=== PATIENT | female | born 1930 | race Two or more races ===

== ENCOUNTER 2017-06-11 10:44 | Inpatient (IN) | payer OTHER ==
[~2017-06-11] VITALS: Ht 167.6 cm; Wt 71.7 kg
[~2017-06-11 10:44] MED LIST: AMLO5TAB2 PO; ATOR10TA; CELE200C PO; DONETAB5 PO; GABA100C9; MEMA28CA PO; RALO60TA10
[2017-06-11] MEDS ORDERED: SODIUM CHLORIDE 0.9% 1,000 ML IVB ONE (11:29)
[2017-06-11 11:36] LABS: Basophils # (auto) 0 uL; Basophils % (auto) 0.7 % (0.0-2.0); Eosinophils # (auto) 0 uL; Eosinophils % (auto) 0.5 % (0.0-7.0); Hematocrit 46.6 % (36.0-46.0); Hemoglobin 15.5 g/dL (12.2-16.2); Lymphocytes # (auto) 1.7 uL; Lymphocytes % (auto) 32.1 % (10.0-50.0); Mean Corpuscular Hemoglobin 31.3 pg (28.0-32.0); Mean Corpuscular Hgb Conc. 33.3 g/dL (32.0-36.0); Mean Corpuscular Volume 94.1 fL (80.0-100.0); Monocytes # (auto) 0.7 uL; Neutrophils # (auto) 2.9 uL; Neutrophils % (auto) 53.7 % (37.0-80.0); Nucleated Red Blood Cells % 0.3 %; Platelet Count (auto) 149 10^3/uL (140-450); Red Blood Cells 4.96 10^6/uL (4.0-5.20); Red Cell Distribution Width 13.1 % (11.8-14.3); White Blood Cell 5.4 10^3/uL (4.4-10.8)
[2017-06-11 12:13] LABS: Albumin 3.3 g/dL (3.4-5.0); BUN/Creatinine Ratio 15.4; Bilirubin, Total 0.6 mg/dL (0.2-1.0); Calcium 8.5 mg/dL (8.5-10.1); Lactic Acid w/Reflex 3.4 mmol/L (0.4-2.0); Magnesium 2.3 mg/dL (1.6-2.6); Potassium 3.6 mmol/L (3.5-5.1); Total Protein 7.1 g/dL (6.4-8.2)
[2017-06-11] MEDS ORDERED: ASPirin-EC 81 mg tab PO ONE (13:15)
[2017-06-11 14:03] LABS: Urine Bacteria FEW /hpf (None Seen); Urine Blood Negative /uL (Negative); Urine Specific Gravity 1.016 (1.001-1.035); Urine WBC <1 /hpf (0 - 5)
[2017-06-11] MEDS ORDERED: LORazepam 0.5 MG TAB PO PRN (14:15)
[2017-06-11] MEDS ORDERED: PROMETHAZINE HCL 25 MG/ML 1ML IV PRN (14:15)
[2017-06-11] MEDS ORDERED: DEXTROSE (50%) 50ML SYRG IV PRN (14:15)
[2017-06-11] MEDS ORDERED: MORPHINE SULFATE 10 MG/ML INJ 1ML SDV IV PRN (14:15)
[2017-06-11] MEDS ORDERED: LACTULOSE 20Gm/30ML SOLN PO PRN ×3 (14:15→15:30)
[2017-06-11] MEDS ORDERED: NITROGLYCERIN 0.4 MG SL TAB SL PRN (14:15)
[2017-06-11] MEDS ORDERED: ACETAMINOPHEN 500 MG TAB PO PRN (14:15)
[2017-06-11] MEDS ORDERED: HYDROcodone-ACET 5/325MG TAB PO PRN (14:15)
[2017-06-11] MEDS ORDERED: MORPHINE SULF INJ 2 MG/ML SYRINGE 1ML IV PRN (14:15)
[2017-06-11 14:23] LABS: INR 0.98 (0.9-1.15); Partial Thromboplastin Time 27.3 sec (22.64-33.71); Prothrombin Time 10.7 sec (9.37-12.3)
[2017-06-11] MEDS: SODIUM CHLORIDE 0.9% 1,000 ML IV SCH (14:42)
[2017-06-11 14:52] LABS: CRP High Sensitivity 4.15 mg/dL (< 0.3)
[2017-06-11 15:11] VITALS: BP 139/48
[2017-06-11 15:18] LABS: Folate (Folic Acid) > 24.00 ng/mL (5.38-24)
[2017-06-11] MEDS ORDERED: ALBUTEROL SULF 2.5 MG/0.5ML(0.5%) NEB SOLN NEB PRN (15:30)
[2017-06-11] MEDS: DOXYCYCLINE HYC 100MG/250ML 250 ML IV SCH (15:54)
[2017-06-11] MEDS: methylPREDNISolone SOD SUCC 40 MG/ML VL IV SCH (15:57)
[2017-06-11] MEDS: ENOXAPARIN SOD 80 MG/0.8ML SYRINGE SC SCH (15:59)
[2017-06-11] MEDS ORDERED: FUROSEMIDE 40 MG/4 ML VIAL IV ONE (16:00)
[2017-06-11] MEDS ORDERED: POTASSIUM CHL 20 Meq TABLET PO ONE (16:00)
[2017-06-11] MEDS ORDERED: ENALAPRIL MALEATE 2.5 MG TAB PO ONE (16:00)
[2017-06-11 17:00] VITALS: BP 162/69
[2017-06-11] MEDS ORDERED: DOCU-99 PO (17:30)
[2017-06-11] MEDS ORDERED: MEMA1CAP2 PO (17:30)
[2017-06-11] MEDS: ACCU-CHEK COMFORT CURVE STRIP VI SCH ×2 (18:08→23:38)
[2017-06-11] MEDS: ALBUTEROL SULF 2.5 MG/0.5ML(0.5%) NEB SOLN NEB SCH ×2 (20:34→23:34)
[2017-06-11] MEDS: IPRATROPIUM BROM 0.5 MG/2.5ML INH SOL NEB SCH ×2 (20:34→23:34)
[2017-06-11 20:37] VITALS: BP 132/88
[2017-06-11 21:30] VITALS: BP 139/71
[2017-06-11] MEDS: SODIUM CHLOR 0.9% PF (SALINE LOCK) 10ML VIAL IV SCH (21:39)
[2017-06-11] MEDS: DONEPEZIL HYDROCHLORIDE 5 MG TAB PO SCH (21:39)
[2017-06-11] MEDS: CARVEDILOL 3.125 MG TAB PO SCH (21:40)
[2017-06-11] MEDS: MEMANTINE HCL 5 MG TAB PO SCH (21:40)
[2017-06-11] MEDS: ATORVASTATIN 20 MG TAB PO SCH (21:40)
[2017-06-11] MEDS: GABAPENTIN 100 MG CAP PO SCH (21:41)
[2017-06-11] MEDS ORDERED: ATORVASTATIN 20 MG TAB PO SCH (22:00)
[2017-06-11] MEDS ORDERED: METOPROLOL TARTRATE 25 MG TAB PO SCH (22:00)
[2017-06-11] MEDS ORDERED: DONEPEZIL HYDROCHLORIDE 5 MG TAB PO SCH (22:00)
[2017-06-12] MEDS: TEMAZEPAM 15 MG CAP PO PRN (00:37)
[2017-06-12] MEDS: DOXYCYCLINE HYC 100MG/250ML 250 ML IV SCH ×2 (03:00→15:30)
[2017-06-12] MEDS: methylPREDNISolone SOD SUCC 40 MG/ML VL IV SCH ×2 (03:00→15:29)
[2017-06-12] MEDS: SODIUM CHLORIDE 0.9% 1,000 ML IV SCH ×2 (03:01→15:28)
[2017-06-12 05:00] VITALS: BP 118/60
[2017-06-12] MEDS: SODIUM CHLOR 0.9% PF (SALINE LOCK) 10ML VIAL IV SCH ×3 (05:32→21:34)
[2017-06-12] MEDS: GABAPENTIN 100 MG CAP PO SCH ×3 (05:33→21:35)
[2017-06-12] MEDS: ENOXAPARIN SOD 80 MG/0.8ML SYRINGE SC SCH ×2 (05:34→17:55)
[2017-06-12] MEDS: ACCU-CHEK COMFORT CURVE STRIP VI SCH ×4 (05:35→23:46)
[2017-06-12] MEDS: ALBUTEROL SULF 2.5 MG/0.5ML(0.5%) NEB SOLN NEB SCH ×3 (06:29→18:41)
[2017-06-12] MEDS: IPRATROPIUM BROM 0.5 MG/2.5ML INH SOL NEB SCH ×3 (06:29→18:41)
[2017-06-12 07:43] LABS: Cholesterol 110 mg/dL (< 200); HDL Cholesterol 60 mg/dL (40-59); LDL Cholesterol 54 mg/dL (< 100); Triglycerides 51 mg/dL (< 150)
[2017-06-12 09:00] VITALS: BP 104/43
[2017-06-12] MEDS ORDERED: ENOXAPARIN SOD 40 MG/0.4 ML SYRINGE SC SCH (10:00)
[2017-06-12] MEDS ORDERED: ASPirin 81 mg TAB PO SCH ×2 (10:00)
[2017-06-12] MEDS: ENALAPRIL MALEATE 2.5 MG TAB PO SCH (10:00)
[2017-06-12] MEDS: amLODIPine BESYLATE 5 MG TAB PO SCH (10:00)
[2017-06-12] MEDS: NITROGLYCERIN 0.2MG/HR TOPICAL PATCH TD SCH (10:00)
[2017-06-12] MEDS: POTASSIUM CHL 20 Meq TABLET PO SCH ×2 (10:57→11:14)
[2017-06-12] MEDS: MEMANTINE HCL 5 MG TAB PO SCH ×3 (10:59→21:35)
[2017-06-12] MEDS: ASPirin 81 mg TAB PO SCH (11:01)
[2017-06-12] MEDS: RALOXIFENE HCL 60 MG TAB PO SCH (11:12)
[2017-06-12] MEDS: CARVEDILOL 3.125 MG TAB PO SCH ×2 (11:15→21:35)
[2017-06-12] MEDS: FUROSEMIDE 40 MG/4 ML VIAL IV SCH (11:17)
[2017-06-12 13:00] VITALS: BP 103/43
[2017-06-12 17:00] VITALS: BP 150/62
[2017-06-12] MEDS ORDERED: MORPHINE SULFATE 4 MG/ML SYR/VIAL IV PRN ×2 (20:00)
[2017-06-12] MEDS: DONEPEZIL HYDROCHLORIDE 5 MG TAB PO SCH (21:34)
[2017-06-12] MEDS: ATORVASTATIN 20 MG TAB PO SCH (21:35)
[2017-06-12 22:00] VITALS: BP 161/63
[2017-06-13] MEDS: SODIUM CHLORIDE 0.9% 1,000 ML IV SCH ×2 (01:24→15:02)
[2017-06-13] MEDS: methylPREDNISolone SOD SUCC 40 MG/ML VL IV SCH ×2 (03:05→15:02)
[2017-06-13] MEDS: DOXYCYCLINE HYC 100MG/250ML 250 ML IV SCH ×2 (03:06→15:02)
[2017-06-13] MEDS: GABAPENTIN 100 MG CAP PO SCH ×3 (05:05→21:32)
[2017-06-13] MEDS: SODIUM CHLOR 0.9% PF (SALINE LOCK) 10ML VIAL IV SCH ×3 (05:05→21:31)
[2017-06-13] MEDS: ENOXAPARIN SOD 80 MG/0.8ML SYRINGE SC SCH ×2 (05:05→17:31)
[2017-06-13] MEDS: ACCU-CHEK COMFORT CURVE STRIP VI SCH ×4 (05:06→23:47)
[2017-06-13 05:24] VITALS: BP 118/52
[2017-06-13] MEDS: IPRATROPIUM BROM 0.5 MG/2.5ML INH SOL NEB SCH ×4 (06:22→18:38)
[2017-06-13] MEDS: ALBUTEROL SULF 2.5 MG/0.5ML(0.5%) NEB SOLN NEB SCH ×4 (06:22→18:39)
[2017-06-13 09:09] VITALS: BP 128/62
[2017-06-13] MEDS: FUROSEMIDE 40 MG/4 ML VIAL IV SCH (10:00)
[2017-06-13] MEDS: NITROGLYCERIN 0.2MG/HR TOPICAL PATCH TD SCH (10:00)
[2017-06-13] MEDS: MEMANTINE HCL 5 MG TAB PO SCH ×2 (10:00→21:31)
[2017-06-13] MEDS: CARVEDILOL 3.125 MG TAB PO SCH ×2 (10:20→21:32)
[2017-06-13] MEDS: POTASSIUM CHL 20 Meq TABLET PO SCH (10:21)
[2017-06-13] MEDS: RALOXIFENE HCL 60 MG TAB PO SCH (10:21)
[2017-06-13] MEDS: ASPirin 81 mg TAB PO SCH (10:21)
[2017-06-13] MEDS: ENALAPRIL MALEATE 2.5 MG TAB PO SCH (10:22)
[2017-06-13] MEDS: amLODIPine BESYLATE 5 MG TAB PO SCH (10:23)
[2017-06-13 13:00] VITALS: BP 145/74
[2017-06-13 16:52] VITALS: BP 132/50
[2017-06-13] MEDS: ATORVASTATIN 20 MG TAB PO SCH (21:32)
[2017-06-13] MEDS: DONEPEZIL HYDROCHLORIDE 5 MG TAB PO SCH (21:32)
[2017-06-13 22:00] VITALS: BP 136/64
[2017-06-14] MEDS: IPRATROPIUM BROM 0.5 MG/2.5ML INH SOL NEB SCH ×4 (00:20→18:00)
[2017-06-14] MEDS: ALBUTEROL SULF 2.5 MG/0.5ML(0.5%) NEB SOLN NEB SCH ×4 (00:20→18:00)
[2017-06-14] MEDS: DOXYCYCLINE HYC 100MG/250ML 250 ML IV SCH ×2 (03:03→15:57)
[2017-06-14] MEDS: methylPREDNISolone SOD SUCC 40 MG/ML VL IV SCH ×2 (03:03→15:57)
[2017-06-14] MEDS: SODIUM CHLORIDE 0.9% 1,000 ML IV SCH ×2 (03:03→16:53)
[2017-06-14 05:00] VITALS: BP 150/53
[2017-06-14] MEDS: SODIUM CHLOR 0.9% PF (SALINE LOCK) 10ML VIAL IV SCH ×3 (05:33→21:38)
[2017-06-14] MEDS: ENOXAPARIN SOD 80 MG/0.8ML SYRINGE SC SCH ×2 (05:34→18:01)
[2017-06-14] MEDS: GABAPENTIN 100 MG CAP PO SCH ×3 (05:34→21:37)
[2017-06-14] MEDS: ACCU-CHEK COMFORT CURVE STRIP VI SCH ×4 (05:38→23:37)
[2017-06-14 09:10] VITALS: BP 140/78
[2017-06-14] MEDS: FUROSEMIDE 40 MG/4 ML VIAL IV SCH (09:30)
[2017-06-14] MEDS: MEMANTINE HCL 5 MG TAB PO SCH ×2 (09:31→21:38)
[2017-06-14] MEDS: POTASSIUM CHL 20 Meq TABLET PO SCH (09:31)
[2017-06-14] MEDS: ASPirin 81 mg TAB PO SCH (09:32)
[2017-06-14] MEDS: RALOXIFENE HCL 60 MG TAB PO SCH (09:32)
[2017-06-14] MEDS: CARVEDILOL 3.125 MG TAB PO SCH ×2 (09:33→21:38)
[2017-06-14] MEDS: amLODIPine BESYLATE 5 MG TAB PO SCH (09:33)
[2017-06-14] MEDS: ENALAPRIL MALEATE 2.5 MG TAB PO SCH (09:33)
[2017-06-14] MEDS: NITROGLYCERIN 0.2MG/HR TOPICAL PATCH TD SCH (09:34)
[2017-06-14 12:58] VITALS: BP 115/61
[2017-06-14 17:25] VITALS: BP 109/53
[2017-06-14] MEDS: ATORVASTATIN 20 MG TAB PO SCH (21:38)
[2017-06-14] MEDS: DONEPEZIL HYDROCHLORIDE 5 MG TAB PO SCH (21:38)
[2017-06-14 22:00] VITALS: BP 127/49
[2017-06-15] VITALS (7 sets, daily range): BP systolic 112–137; BP diastolic 49–82
[2017-06-15] MEDS: methylPREDNISolone SOD SUCC 40 MG/ML VL IV SCH ×2 (03:30→14:40)
[2017-06-15] MEDS: DOXYCYCLINE HYC 100MG/250ML 250 ML IV SCH ×2 (03:30→14:43)
[2017-06-15] MEDS: SODIUM CHLORIDE 0.9% 1,000 ML IV SCH ×2 (05:49→17:08)
[2017-06-15] MEDS: SODIUM CHLOR 0.9% PF (SALINE LOCK) 10ML VIAL IV SCH ×3 (05:49→22:00)
[2017-06-15] MEDS: ENOXAPARIN SOD 80 MG/0.8ML SYRINGE SC SCH ×2 (05:50→17:08)
[2017-06-15] MEDS: GABAPENTIN 100 MG CAP PO SCH ×3 (05:50→22:01)
[2017-06-15] MEDS: ACCU-CHEK COMFORT CURVE STRIP VI SCH ×3 (05:50→17:08)
[2017-06-15] MEDS: ALBUTEROL SULF 2.5 MG/0.5ML(0.5%) NEB SOLN NEB SCH ×4 (07:48→18:57)
[2017-06-15] MEDS: IPRATROPIUM BROM 0.5 MG/2.5ML INH SOL NEB SCH ×4 (07:48→18:57)
[2017-06-15] MEDS: CARVEDILOL 3.125 MG TAB PO SCH ×2 (10:00→22:00)
[2017-06-15] MEDS: POTASSIUM CHL 20 Meq TABLET PO SCH (10:05)
[2017-06-15] MEDS: ASPirin 81 mg TAB PO SCH (10:05)
[2017-06-15] MEDS: FUROSEMIDE 40 MG/4 ML VIAL IV SCH (10:06)
[2017-06-15] MEDS: ENALAPRIL MALEATE 2.5 MG TAB PO SCH (10:06)
[2017-06-15] MEDS: amLODIPine BESYLATE 5 MG TAB PO SCH (10:06)
[2017-06-15] MEDS: MEMANTINE HCL 5 MG TAB PO SCH ×2 (10:07→22:01)
[2017-06-15] MEDS: NITROGLYCERIN 0.2MG/HR TOPICAL PATCH TD SCH (10:08)
[2017-06-15] MEDS: RALOXIFENE HCL 60 MG TAB PO SCH (10:09)
[2017-06-15] MEDS: ATORVASTATIN 20 MG TAB PO SCH (22:00)
[2017-06-15] MEDS: DONEPEZIL HYDROCHLORIDE 5 MG TAB PO SCH (22:01)
[2017-06-16] MEDS: ACCU-CHEK COMFORT CURVE STRIP VI SCH ×5 (00:12→23:53)
[2017-06-16] MEDS: IPRATROPIUM BROM 0.5 MG/2.5ML INH SOL NEB SCH ×4 (00:27→19:31)
[2017-06-16] MEDS: ALBUTEROL SULF 2.5 MG/0.5ML(0.5%) NEB SOLN NEB SCH ×4 (00:28→19:31)
[2017-06-16] MEDS: DOXYCYCLINE HYC 100MG/250ML 250 ML IV SCH ×2 (03:30→15:45)
[2017-06-16] MEDS: methylPREDNISolone SOD SUCC 40 MG/ML VL IV SCH ×2 (03:30→15:44)
[2017-06-16 05:13] VITALS: BP 115/61
[2017-06-16] MEDS: GABAPENTIN 100 MG CAP PO SCH ×3 (06:03→21:24)
[2017-06-16] MEDS: SODIUM CHLOR 0.9% PF (SALINE LOCK) 10ML VIAL IV SCH ×3 (06:03→21:22)
[2017-06-16] MEDS: ENOXAPARIN SOD 80 MG/0.8ML SYRINGE SC SCH ×2 (06:04→19:31)
[2017-06-16] MEDS: SODIUM CHLORIDE 0.9% 1,000 ML IV SCH ×2 (06:04→19:14)
[2017-06-16 08:00] VITALS: BP 123/88
[2017-06-16] MEDS: CARVEDILOL 3.125 MG TAB PO SCH ×2 (10:00→21:23)
[2017-06-16] MEDS: FUROSEMIDE 40 MG/4 ML VIAL IV SCH (10:40)
[2017-06-16] MEDS: MEMANTINE HCL 5 MG TAB PO SCH ×2 (10:41→21:23)
[2017-06-16] MEDS: POTASSIUM CHL 20 Meq TABLET PO SCH (10:42)
[2017-06-16] MEDS: ENALAPRIL MALEATE 2.5 MG TAB PO SCH (10:42)
[2017-06-16] MEDS: RALOXIFENE HCL 60 MG TAB PO SCH (10:42)
[2017-06-16] MEDS: ASPirin 81 mg TAB PO SCH (10:42)
[2017-06-16] MEDS: amLODIPine BESYLATE 5 MG TAB PO SCH (10:43)
[2017-06-16] MEDS: NITROGLYCERIN 0.2MG/HR TOPICAL PATCH TD SCH (10:43)
[2017-06-16 12:00] VITALS: BP 111/63
[2017-06-16 16:56] VITALS: BP 130/65
[2017-06-16 18:51] VITALS: BP 130/65
[2017-06-16] MEDS: DONEPEZIL HYDROCHLORIDE 5 MG TAB PO SCH (21:22)
[2017-06-16] MEDS: ATORVASTATIN 20 MG TAB PO SCH (21:23)
[2017-06-16] MEDS: TEMAZEPAM 15 MG CAP PO PRN (21:24)
[2017-06-16 22:11] VITALS: BP 128/56
[2017-06-17] MEDS: ALBUTEROL SULF 2.5 MG/0.5ML(0.5%) NEB SOLN NEB SCH ×2 (00:11→06:29)
[2017-06-17] MEDS: IPRATROPIUM BROM 0.5 MG/2.5ML INH SOL NEB SCH ×2 (00:11→06:29)
[2017-06-17] MEDS: methylPREDNISolone SOD SUCC 40 MG/ML VL IV SCH (03:34)
[2017-06-17] MEDS: DOXYCYCLINE HYC 100MG/250ML 250 ML IV SCH (03:34)
[2017-06-17 04:50] VITALS: BP 122/58
[2017-06-17] MEDS: GABAPENTIN 100 MG CAP PO SCH (05:45)
[2017-06-17] MEDS: ACCU-CHEK COMFORT CURVE STRIP VI SCH (05:45)
[2017-06-17] MEDS: ENOXAPARIN SOD 80 MG/0.8ML SYRINGE SC SCH (05:45)
[2017-06-17] MEDS: SODIUM CHLOR 0.9% PF (SALINE LOCK) 10ML VIAL IV SCH (05:45)
[2017-06-17 08:10] VITALS: BP 114/52
[2017-06-17 09:00] VITALS: BP 114/52
[2017-06-17] MEDS: CARVEDILOL 3.125 MG TAB PO SCH (10:00)
[2017-06-17] MEDS ORDERED: predniSONE 20 MG TAB PO SCH (10:00)
[2017-06-17] MEDS ORDERED: DOXYCYCLINE 100 MG TAB/CAP PO SCH (10:00)
[2017-06-17] MEDS ORDERED: FUROSEMIDE 40 MG TAB PO SCH (10:00)
[2017-06-17] MEDS: NITROGLYCERIN 0.2MG/HR TOPICAL PATCH TD SCH (10:00)
[2017-06-17] MEDS: ENALAPRIL MALEATE 2.5 MG TAB PO SCH (10:25)
[2017-06-17] MEDS: amLODIPine BESYLATE 5 MG TAB PO SCH (10:25)
[2017-06-17] MEDS: MEMANTINE HCL 5 MG TAB PO SCH (10:26)
[2017-06-17] MEDS: ASPirin 81 mg TAB PO SCH (10:26)
[2017-06-17] MEDS: POTASSIUM CHL 20 Meq TABLET PO SCH (10:26)
[2017-06-17] MEDS: RALOXIFENE HCL 60 MG TAB PO SCH (10:30)
[2017-06-17 10:31] LABS: Albumin 2.7 g/dL (3.4-5.0); BUN/Creatinine Ratio 38.7; Bilirubin, Total 0.7 mg/dL (0.2-1.0); Calcium 8.5 mg/dL (8.5-10.1); Potassium 4.1 mmol/L (3.5-5.1); Total Protein 6.3 g/dL (6.4-8.2)
[2017-06-17] MEDS: SODIUM CHLORIDE 0.9% 1,000 ML IV SCH (10:35)
== END 2017-06-17 11:25 | DRG 308 ==
LOC: EDBD 10:44 → ER 10:44 → TELE-CENTR 10:45
PROVIDERS: ADMIT Internal Medicine; ATTEND Internal Medicine
DX: I48.91 Unspecified atrial fibrillation (principal); G93.41 Metabolic encephalopathy; G45.9 Transient cerebral ischemic attack, unspecified; I11.0 Hypertensive heart disease with heart failure; I50.32 Chronic diastolic (congestive) heart failure; G30.9 Alzheimer's disease, unspecified; F02.80 Dementia in other diseases classified elsewhere, unspecified severity, without behavioral disturbance, psychotic disturbance, mood disturbance, and anxiety; I67.2 Cerebral atherosclerosis; J44.9 Chronic obstructive pulmonary disease, unspecified; E78.5 Hyperlipidemia, unspecified; I25.10 Atherosclerotic heart disease of native coronary artery without angina pectoris; Z79.899 Other long term (current) drug therapy; Z82.0 Family history of epilepsy and other diseases of the nervous system; Z82.49 Family history of ischemic heart disease and other diseases of the circulatory system; Z90.710 Acquired absence of both cervix and uterus; Z79.82 Long term (current) use of aspirin
CPT/HCPCS: 36415; 36600; 51702; 70450; 71045; 80053; 80061; 81001; 82550; 82607; 82746; 82805; 82962; 83036; 83605; 83735; 83880; 84443; 84484; 85025; 85610; 85652; 85730; 86141; 87040; 93005; 93306; 94640; 96361; 96365; 96372; 96375; 97163; J3490